=== PATIENT | male | born 1965 | race Caucasian/White ===

== ENCOUNTER 2017-02-25 17:44 | Inpatient (IN) | payer OTHER ==
[~2017-02-25] VITALS: Ht 167.6 cm; Wt 93.5 kg
--- NOTE | 2017-02-25 17:47 | Emergency Room Report ---
History of Present Illness Time Seen by MD Castro Presenting Problem in Triage Pt arrived:Walked Presenting Problem:PT HAS BEEN EXPERIENCING "FLUTTERY" DISCOMFORT IN CHEST WITHOUT RADIATION ALL DAY. 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 ARRIVES AT ED WITH "OCCASIONAL" DISTRESS COMPLAINTS. NO SOB. NO PREVIOUS INJURY. 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 N Clinical Suspician of Infection? N Mental Status: 1 - Regular (Normal Baseline) Sepsis Risk:Low Sepsis Risk Have you (or family members/close friends) recently traveled outside the [place]? N If Yes, where/when: Have you had exposure to infectious disease within the past month? TB? Other? Specify: Comment The patient complains of palpitations and chest tightness. He started having what sound like extrasystoles at about 10 AM, when he gets them it makes him cough. He started getting some chest tightness off and on that started about 1 PM and LEFT after he got here in the emergency room and he is currently completely symptom free. He said he has had some minimal chest tightness and palpitations off and on in the past, but not like today. No known history of heart disease. Former smoker. At one time he was treated for hyperlipidemia, but not now. He does not have diabetes or hypertension to his knowledge. He denies family history of heart disease. A stress test done years ago. No other cardiac workup ALLERGIES Uncoded Allergies: PCN (Mild, 02/25/17) History Medical History Surgical Hx Previous Surgery?N Review of Systems All Other Systems Reviewed and Negative Constitutional denies diaphoresis, denies fever Respiratory cough, denies shortness of breath Cardiovascular chest pain, palpitations Gastrointestinal denies nausea, denies vomiting Physical Exam Vital Signs Vital Signs Date Time Temp Pulse Resp B/P Pulse O2 O2 Flow FiO2 Ox Delivery Rate 02/25 1935 98.2 79 20 144/77 100 02/26 1928 79 20 144/77 100 02/25 1834 98.2 64 20 151/81 100 02/26 1748 98.3 75 18 152/75 100 General Appearance normal appearance, WD/WN Eye Exam - bilateral eye normal exam, bilateral eye PERRL, bilateral eye EOMI Ear, Nose, Throat hearing grossly normal, normal ENT inspection Neck normal inspection, non-tender, supple, full range of motion Respiratory Status Yes: trachea midline, chest symmetrical. No: respiratory distress. Lung Sounds bilateral: normal breath sounds, lungs clear. 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 No Results/Orders Laboratory Tests 02/25/17 1745: Sodium 139, Potassium 3.7, Chloride 103, Carbon Dioxide 27, BUN 13, Creatinine 1.0, Estimated Creat Clear 111, Estimated GFR (MDRD) 78, Glucose 97, Calcium 8.8 , Total Bilirubin 0.6, AST 21, ALT 41, Alkaline Phosphatase 72, Creatine Kinase 172, CK-MB (CK-2) Rel Index 0.5, CK and CKMB Interp 0.8, Troponin I 0.19 H, Total Protein 8.0, Albumin 4.3, Globulin 3.7 H, Albumin/Globulin Ratio 1.2, WBC 6.5, RBC 4.90, Hgb 15.2, Hct 41.8 L, MCV 85.2, RDW 12.4, Plt Count 251, MPV 8.4 , Gran % 50.8, Gran # 3.3, Lymphocytes % 37.3, Monocytes % 9.1, Eosinophils % 2.5, Basophils % 0.4, Lymphocytes # 2.4, Monocytes # 0.6, Eosinophils # 0.2, Basophils # 0.0, PUBS MCHC 36.4 H, MCH 31.0 Current Medication Orders Sig/Carlos Start time Last Medication Dose Route Stop Time Status Admin Atorvastatin Calcium 20 MG DAILY 02/26 09 UNV PO Metoprolol Tartrate 25 MG BID 02/25 2100 UNV PO Nicotine 21 MG DAILYP PRN 02/25 1945 UNV TD Sodium Chloride 10 ML PRN PRN 09/01 1945 UNV IV Metoprolol Tartrate 0 .STK-MED ONE 02/25 1926 DC .ROUTE Ticagrelor 0 .STK-MED ONE 02/25 190 DC PO Atorvastatin Calcium 20 MG ONCE ONE 02/25 1900 DC PO 02/25 190 Metoprolol Tartrate 25 MG ONCE ONE 02/25 1900 DC 02/25 PO 02/25 190 1928 Ticagrelor 180 MG ONCE ONE 02/25 1900 DC 02/25 PO 02/25 190 190 Aspirin 324 MG ONCE ONE 02/25 1800 DC 02/25 PO 02/25 1801 1753 Sodium Chloride 10 ML PRN PRN 02/25 1800 AC IV 02/26 1746 Aspirin 0 .STK-MED ONE 02/25 175 DC .ROUTE Orders Procedure Date/time Status [id number] FAT/LO CHO/DARIUS 02/26 B Active TROPONIN I 02/26 0400 Active TROPONIN I 02/26 0100 Active TROPONIN I 02/25 2200 Active Decision to admit 02/25 190 Active PRODUCTION ZONE LEADER 02/25 1855 Active ELECTROCARDIOGRAM REQUEST 02/25 1747 Active CHEST-PORTABLE 02/25 174 Active IV SALINE LOCK 02/25 1747 Active CBC WITH AUTO DIFF 02/25 1747 Complete CARDIAC ENZYMES 02/25 1747 Complete CHEM 12 PROFILE 02/25 1747 Complete ADMIT PATIENT 02/25 UNK Active PULSE OXIMETRY REQUEST 02/25 UNK Active OXYGEN REQUEST 02/25 UNK Active VITAL SIGNS 02/25 UNK Active 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 Inverted in V4, V5, V6, 1, aVL, and II. No prior EKGs available for comparison EKG #2 interpreted by Pavan Landrum MD: Rhythm: sinus Rate: 64 Ozone: normal Ectopy: none Conduction: normal ST Segment Changes: none T Wave Changes: Biphasic in III, AVF, V2 and V3. Inverted in V4, V5, V6, 1, aVL, and II. Q Waves: none No significant change from first electrocardiogram. XRAY/CT/US XRAY/CT/US XRAY chest Comment Chest x-ray interpreted by Pavan Landrum M.D. No infiltrate, pneumothorax, pleural effusion, or wide mediastinum. SHALONDA Score for N-Stemi/Angina SHALONDA N-STEMI SCORE SHALONDA N-STEMI SCORE Response Value Age of patient Less than 65 yrs 0 Number of risk factors for CAD Presence of less than 3 0 Prior coronary artery stenosis (seen in angiography) Less than 50% 0 ST-Segment deviation on ECG (>1 min) Absent 0 Prior aspirin intake No ASA in the last 7 days 0 Severe anginal chest pain No or 1 episode in 24h 0 Elevated cardiac markers(CK-MB or troponin) Present 1 Total 1 Progress - 6:50 PM: Case discussed with Dr. Watts, cardiology. He requested the patient be admitted and he will do a cardiac cath in the morning. He requests Brilinta 180 mg, Lipitor 20 mg and Lopressor 25 mg twice a day orally. 7:05 PM: I have discussed the case with Dr. Poe for Dr. Haji who agrees to admit the patient to the hospital. We discussed the patient's clinical information, including history, exam, laboratory and radiology results and ED course. Per hospital procedure, I will write temporary bridge inpatient orders on the patient. Specific orders requested by the admitting physician: Per Dr. Watts Departure Departure Disposition Still a Patient Clinical Impression Primary Impression: Non-ST elevation myocardial infarction (NSTEMI) Condition STABLE Referrals Adithya [facility],Daniel Vazquez (Family) ED Critical Care Critical Care No at 2016
[2017-02-25 17:48] VITALS: BP 152/75
[2017-02-25 18:04] LABS: HEMOGLOBIN 15.2 g/dL (14.1-18.0); LYMPH # 2.4 K/mm3 (0.7-4.5); LYMPH % 37.3 % (10-50)
[2017-02-25 20:17] VITALS: BP 144/77
[2017-02-25 22:11] VITALS: BP 161/83
[2017-02-25 23:46] VITALS: BP 121/51
[2017-02-26] VITALS (14 sets, daily range): BP systolic 100–143; BP diastolic 52–75
--- NOTE | 2017-02-26 07:23 | HISTORY AND PHYSICAL REPORT ---
Demographics: Admit date: 02/25/17 Chief complaint: chest pain PRIMARY DIAGNOSIS: NON-STEMI Allergies: Uncoded Allergies: PCN (Mild, 02/25/17) History of present illness: History of present illness: this wm starting having chest tightness and heart fluttering and had some sob and presented to the ed and was found to have abn ekg and card enz and was discussed with dr ballard and admitted with nonstemi - Past medical history: Family HX Family Hx Insignificant No Diabetes No CAD No Hypertension No Hyperlipidemia No Cancer Yes TB No Immunization HX Ped.Immunizations UTD Yes DT/Tetanus > 10 Years Ago Pneumonia Never Had TB Test in last year Yes Result Negative General CAD? Yes Angina: No OH: No Hypertension? No Hyperlipidemia? No CHF? No COPD? No Asthma? No Hernia? No CVA? No Seizures? No Diabetes? No UTI? No Stones? No GB Disease: No Nephritic Syndrome? No Asplenia? No Hepatitis? No Sickle Cell Disease? No Cataracts? No Glaucoma? No MRSA? No HIV? No TB? No Cancer? No More? Yes Additional hx: MVP Past Surgical HX Previous Surgery?N Social Hx: Smoking HX Tobacco Yes Type Cigarettes Packs/day < 1 PACK Are you/the child exposed to second-hand smoke: No Alcohol Alcohol: No Hx of Drug Use Drug Use? No Patien't marital status is Patient's support system is excellent Review of systems: Constitutional No: fever. Eyes No: drainage. Ears, Nose, Mouth, Throat No ear pain, No epistaxis, No throat pain Respiratory No: cough, shortness of breath, wheezing. Cardiovascular see HPI, chest pain, No palpitations, No syncope Gastrointestinal/Abdominal No diarrhea, No poor appetite, No poor fluid intake, No vomiting Genitourinary No: dysuria, frequency, hesitancy, hematuria. Musculoskeletal No: back pain, joint pain, joint swelling, neck pain. Skin No: rash. Neurological No: headache, seizure disorder. Psychiatric No: no symptoms reported, depressed. Exam: Lab data for last 24 hours: Laboratory Tests 02/26/17 0400: Troponin I 0.19 H 02/26/17 0400: Triglycerides 103, Cholesterol 189, LDL Cholesterol 128.4, VLDL Cholesterol 20.6 , HDL Cholesterol 40.0 02/26/17 0100: Troponin I 0.18 H 02/25/17 2200: Troponin I 0.18 H 02/25/17 1745: Sodium 139, Potassium 3.7, Chloride 103, Carbon Dioxide 27, BUN 13, Creatinine 1.0, Estimated Creat Clear 111, Estimated GFR (MDRD) 78, Glucose 97, Calcium 8.8 , Total Bilirubin 0.6, AST 21, ALT 41, Alkaline Phosphatase 72, Creatine Kinase 172, CK-MB (CK-2) Rel Index 0.5, CK and CKMB Interp 0.8, Troponin I 0.19 H, Total Protein 8.0, Albumin 4.3, Globulin 3.7 H, Albumin/Globulin Ratio 1.2, WBC 6.5, RBC 4.90, Hgb 15.2, Hct 41.8 L, MCV 85.2, RDW 12.4, Plt Count 251, MPV 8.4 , Gran % 50.8, Gran # 3.3, Lymphocytes % 37.3, Monocytes % 9.1, Eosinophils % 2.5, Basophils % 0.4, Lymphocytes # 2.4, Monocytes # 0.6, Eosinophils # 0.2, Basophils # 0.0, PUBS MCHC 36.4 H, MCH 31.0 Admission vital signs: 1ST Vital Signs Result Date Time Pulse Ox 100 02/26 1748 B/P 152/75 02/26 1748 Temp 98.3 02/26 1748 Pulse 75 02/25 1748 Resp 18 02/25 1748 O2 Delivery ROOM AIR 02/25 2017 O2 Flow Rate 2 02/25 2217 Exam General appearance: alert, active Eyes: anicteric, PERRLA ENT: dry mucous membranes Neck: no carotid bruit, no JVD Cardiovascular: regular rate & rhythm, murmur Respiratory: clear to auscultation, no respiratory distress ABD: soft Genitourinary: normal voiding & quantity Extremities: moves all Musculoskeletal: equal muscle strength Skin: intact Neuro: alert, division manager II-XII nml as tested Additional information: pt with abn ekg and has abn /elevated troponin - and pain was consistent with angina- will prob need cath Plan: Problem List 1. Non-ST elevation myocardial infarction (NSTEMI) Plan: will await card consult at 0723
--- NOTE | 2017-02-26 10:20 | RADIOLOGY REPORT PS360 ---
CARDIAC CATHETERIZATION DATE OF CATHETERIZATION:02/26/2017 8:53 AM PROCEDURES: 1. Left heart catheterization 2. Left ventriculogram 3. Selective coronary angiogram INDICATION FOR TEST: 1. Acute non-ST elevation myocardial infarction Informed consent was obtained prior to the procedure. COMPLICATIONS: None ESTIMATED BLOOD LOSS: Less than 10 ml. TECHNIQUE: One percent lidocaine used to anesthetize the right anterior aspect of the wrist. The right radial artery was accessed via the Seldinger technique. A 6 Serbian sheath was placed in the right radial artery. 2.5 mg of verapamil, 800 mcg of nitroglycerin and 5000 U Heparin were given through the arterial sheath. The Marian catheter was also used to perform left heart catheterization and left ventriculography. At the end of the procedure the patient was transferred to the post-op holding area in stable condition for arterial sheath removal. ANGIOGRAPHIC RESULTS: 1. The left main artery normal 2. The left anterior descending artery normal 3. The circumflex artery dominant normal 4. The right coronary artery small vestigial normal 5. The NDIAYE ventriculogram reveals hyperdynamic with mid anterior apical cavitary obliteration with an estimated ejection fraction of 85% 6. The left ventricular end-diastolic pressure 20 mmHg IMPRESSION: 1. Normal coronary arteries. 2. Cavitary obliteration in the mid anterior apical segment consistent with apical hypertrophic obstructive cardiomyopathy 3. Mildly elevated LVEDP PLAN: 1. Start high-dose beta blockers and verapamil in order to decrease inotropic state 2. It is possible the patient has hypertensive heart disease but I am more concerned and believe that patient doesn't the have at least apical HOCM 3. I would like to keep patient and the hospital this afternoon and tonight and start patient on beta blockers along with 240 mg of verapamil. We should avoid afterload reducing medicines such as alivia inhibitors or any other vasodilator such as dihydropyridine calcium channel blockers, ARB's, and/or alpha blockers. 4. An echocardiogram be obtained on Tuesday to better evaluate the degree of hypertrophic obstruction 5. Also consider transesophageal echocardiogram depending on the quality of the TTE 6. Daily baby aspirin is reasonable
--- NOTE | 2017-02-26 11:14 | PHARMACY CLINIC NOTE ---
Patient Demographics Patient Demographics Admission date: 02/25/17 Date: 02/26/17 Time: 1114 Allergies Coded Allergies: Penicillins (Mild, 02/26/17) HEIGHT- FT: 5 IN: 6.00 K.526 VTE General Information Labs: Laboratory Tests 02/25 1745 Hematology Hgb (14.1 - 18.0 g/dL) 15.2 Hct (42.0 - 52.0 %) 41.8 L Plt Count (142 - 424 K/mm3) 251 Disclaimer The following section includes nursing documentation that has been pulled in for pharmacy review. Patient's VTE score: 3 Patient's VTE Risk: LOW RISK Clinical trial participant? No VTE prophylaxis F 0371 VTE prophylaxis ordered? Yes Type of prophylaxis/treatment: BENJI at 1114
--- NOTE | 2017-02-26 14:45 | RADIOLOGY REPORT PS360 ---
CHEST-PORTABLE Ordering physician: Pavan Landrum MD Age: 51 years Male INDICATION: chest symptomsCP impression PROCEDURE: CHEST-PORTABLE FINDINGS: No prior Lungs well expanded and clear with nothing definitely acute. No pneumothorax. No pleural effusion. Heart upper normal size a left ventricular configuration.. Normal pulmonary vascularity. Hilar and mediastinal structures appear satisfactory. Chest wall. Unremarkable. IMPRESSION ----- No active disease. Lungs clear. Borderline cardiomegaly with left ventricular configuration.
[2017-02-26] MEDS ORDERED: ASPIR 8181 MG PO (17:06)
[2017-02-26] MEDS ORDERED: LOPRESSOR 25MG.25 MG PO (17:06)
--- NOTE | 2017-02-26 17:11 | DISCHARGE SUMMARY STANDARD ---
Demographics Admit date: 02/25/17 Discharge date: 02/26/17 History of present illness History of present illness this wm starting having chest tightness and heart fluttering and had some sob and presented to the ed and was found to have abn ekg and card enz and was discussed with dr ballard and admitted with nonstemi - Hospital Course Hospital Course: cardiac work up- elio consult cardiac cath:per note-PLAN: 1. Start high-dose beta blockers and verapamil in order to decrease inotropic state 2. It is possible the patient has hypertensive heart disease but I am more concerned and believe that patient doesn't the have at least apical HOCM 3. I would like to keep patient and the hospital this afternoon and tonight and start patient on beta blockers along with 240 mg of verapamil. We should avoid afterload reducing medicines such as alivia inhibitors or any other vasodilator such as dihydropyridine calcium channel blockers, ARB's, and/or alpha blockers. 4. An echocardiogram be obtained on Tuesday to better evaluate the degree of hypertrophic obstruction 5. Also consider transesophageal echocardiogram depending on the quality of the TTE 6. Daily baby aspirin is reasonable chest x ray results:IMPRESSION ----- No active disease. Lungs clear. Borderline cardiomegaly with left ventricular configuration. Follow up at 9 am with elio Discharge diagnoses Problem List 1. Non-ST elevation myocardial infarction (NSTEMI) Medications Medications: Discharge meds are as noted. Follow up Follow up in office in: 3 DAYS with: Emmanuel Ballard MD Comment: brianne bear at [phone]
== END 2017-02-26 18:25 | disposition home or self-care (01) | DRG 281 ==
LOC: ER 17:44 → 2ND 19:27
PROVIDERS: Emergency Medicine; Internal Medicine
PROC: 4A023N7 Measurement of Cardiac Sampling and Pressure, Left Heart, Percutaneous Approach (ICD-10-PCS; principal; 2017-02-26 08:00)
PROC: B2151ZZ Fluoroscopy of Left Heart using Low Osmolar Contrast (ICD-10-PCS; principal; 2017-02-26 08:00)
PROC: B2111ZZ Fluoroscopy of Multiple Coronary Arteries using Low Osmolar Contrast (ICD-10-PCS; principal; 2017-02-26 08:00)
DX: I21.4 Non-ST elevation (NSTEMI) myocardial infarction (principal); I42.1 Obstructive hypertrophic cardiomyopathy
CPT/HCPCS: C1769; J1644; Q9967

== ENCOUNTER → 2017-03-01 | Outpatient (CLI) | payer OTHER ==
[~2017-03-01] MED LIST: ASPIR 8181 MG PO; LOPRESSOR 25MG.25 MG PO
--- NOTE | 2017-03-01 22:38 | RADIOLOGY REPORT PS360 ---
PROCEDURE: 2-D M-mode and color Doppler study INDICATIONS FOR THE TEST: Chest pain COPD Heart Murmur+ Tobacco Smoking Palpitations Fatigue Syncope Edema Hypertension Diabetes Mellitus Rheumatic Fever SOB JOHANSEN Obesity Hyperlipidemia Family History HD Additional History NSTEMI, MVP? PATIENT INFORMATION HEIGHT: 66 WEIGHT:205 GENDER: Male B/P:152/75 2-D/M-MODE INTERPRETATION: 2-D MEASUREMENTS OBSERVED VALUES IN CMS Right Ventricular Dimension (RVDd) 1.8 Interventricular Septum (Thickness)(IVsd) 1.2 Left Ventricular Internal Dimensions(LVIDd) 4.4 Left Ventricular Posterior Wall (Thickness)(LVPWd) 1.1 Aortic Root 2.9 Aortic Cusp Separation 1.8 Left Atrial Dimensions (LAD) 4.6 2D 1. Left atrium is mildly enlarged, left ventricle is normal size, there is mild concentric left ventricular hypertrophy present, there appears to be complete cavity obliteration mid to distal septum and apical region raising the concern is for presence of apical hypertrophic cardiomyopathy. Visually estimated ejection fraction is over 65%. 2. The right atrium and right ventricle are normal size and contractility. 3. The aortic valve is minimally thickened and fibrosed. 4. The mitral and tricuspid valve leaflets are minimally thickened. 5. The pulmonic valve is poorly visualized. 6. No significant pericardial effusion noted. DOPPLER INTERROGATION: Doppler interrogation of the aortic mitral and tricuspid valvular presence of mild mitral and tricuspid regurgitation, tricuspid and jet velocity insufficient for calculation of the right ventricular systolic pressure, grade 1 diastolic dysfunction seen with tissue Doppler evidence of raised left atrial pressure. CONCLUSION: 1. Technically difficult study. 2. Normal left ventricular size, visually estimated ejection fraction over 65%, there appears to be asymmetric hypertrophy of the apex and mid to distal septum with complete cavity obliteration during systole raising the presence of apical hypertrophy cardiomyopathy. Grade 1 diastolic dysfunction seen with tissue Doppler evidence of raised left atrial pressure. 3. Mild mitral and tricuspid regurgitation. 4. No significant pericardial effusion noted. 5. Repeat study with Definity contrast is recommended.
== END ==
LOC: RT 12:46
DX: I42.9 Cardiomyopathy, unspecified (principal); I10 Essential (primary) hypertension; G47.33 Obstructive sleep apnea (adult) (pediatric)

== ENCOUNTER → 2017-03-02 | Outpatient (CLI) | payer OTHER | LOC: RT 18:04 | DX: I42.9 Cardiomyopathy, unspecified (principal); I10 Essential (primary) hypertension; G47.33 Obstructive sleep apnea (adult) (pediatric) ==

== ENCOUNTER → 2017-03-21 | Outpatient (CLI) | payer OTHER ==
--- NOTE | 2017-03-21 21:09 | RADIOLOGY REPORT PS360 ---
PROCEDURE: Limited study with definity contrast is performed INDICATIONS FOR THE TEST: Chest pain COPD Heart Murmur Tobacco Smoking Palpitations Fatigue Syncope Edema Hypertension Diabetes Mellitus Rheumatic Fever SOB JOHANSEN Obesity Hyperlipidemia Family History HD Additional History REPEAT WITH DEFINITY LIMITED EXAM PATIENT INFORMATION HEIGHT: 66 WEIGHT:205 GENDER: Male B/P:152/75 2-D/M-MODE INTERPRETATION: 2-D MEASUREMENTS OBSERVED VALUES IN CMS Right Ventricular Dimension (RVDd) Interventricular Septum (Thickness)(IVsd) Left Ventricular Internal Dimensions(LVIDd) Left Ventricular Posterior Wall (Thickness)(LVPWd) Aortic Root Aortic Cusp Separation Left Atrial Dimensions (LAD) 2D 1. The left ventricle is normal size, there is preserved left ventricular systolic function, visually estimated ejection fraction of 55%, there is marked hypertrophy seen of the distal septum anteroapical and apical wall this is likely consistent with apical hypertrophic cardiomyopathy. 2. No significant pericardial effusion noted DOPPLER INTERROGATION: Normal Doppler performed CONCLUSION: 1. The left ventricle is normal size, visually estimated ejection fraction of 55%, there is mild hypertrophy seen of the distal septum, anteroapical, and apical wall consistent with apical hypertrophic cardiomyopathy. 2. No significant pericardial effusion noted.
== END ==
LOC: RT 08:00
DX: I47.2 Ventricular tachycardia (principal); I42.1 Obstructive hypertrophic cardiomyopathy; I10 Essential (primary) hypertension; I11.9 Hypertensive heart disease without heart failure; R68.89 Other general symptoms and signs; R94.31 Abnormal electrocardiogram [ECG] [EKG]

== ENCOUNTER 2017-05-31 10:04 | Day surgery (SDC) | payer OTHER ==
[~2017-05-31] VITALS: Ht 167.6 cm; Wt 92.5 kg
--- NOTE | 2017-05-31 11:08 | Operative Note ---
Endoscopy Report Date: 05/31/17 Preoperative diagnosis: History of polyps, family history colon cancer Procedure Type of procedure: Total colonoscopy to terminal ileum with biopsies and polypectomy Indications: Patient is a 51-year-old white male with a family history of colon cancer in his grandfather. I had previously performed a couple colonoscopies on him. Last colonoscopy was in 2012 and he had hyperplastic polyps. I had recommended 3-5 year follow-up colonoscopy. Patient had previously been under the care of Dr. Hudson and is now seeing Dr. Haji. Of note, patient had a heart attack apparently on February 25. However he had no coronary lesions. He has had some medication changes and was placed on metoprolol. This leg to some constipation. He had some rectal bleeding and burning. Consent was obtained and patient was taken to the endoscopy procedure room. Adequate intravenous sedation was achieved with anesthesia titration of propofol. Digital examination revealed posterior anal sentinel skin tag but no definite fissure was palpated. Variable stiffness Olympus colonoscope was inserted via the anus and advanced to the cecum. Colonic preparation was good. It was advanced a short distance into the terminal ileum. There was some mucosal irregularity in the terminal ileum and cold biopsies were obtained. As the colonoscope was withdrawn through the colon small polyp was encountered in the descending colon and this was removed in a piecemeal fashion using cold biopsy forceps. In the sigmoid colon there is a small polyp removed in a piecemeal fashion using cold biopsy forceps. Retroflexion within the rectum revealed minimal internal hemorrhoids. Colonoscope was withdrawn. Findings 1. Polyp 2. mucosal irregularity of terminal ileum Follow-Up Follow-Up: Follow-up on the histopathology. Likely repeat colonoscopy 3-5 years. at [id number]
[2017-05-31 15:41] VITALS: BP 102/55
== END 2017-05-31 12:00 | disposition home or self-care (01) ==
LOC: SDC 10:04
PROVIDERS: Surgery
PROC: 0DBN8ZX Excision of Sigmoid Colon, Via Natural or Artificial Opening Endoscopic, Diagnostic (ICD-10-PCS; 2017-05-31)
PROC: 0DBM8ZX Excision of Descending Colon, Via Natural or Artificial Opening Endoscopic, Diagnostic (ICD-10-PCS; principal; 2017-05-31 10:30)
DX: Z12.11 Encounter for screening for malignant neoplasm of colon (principal); Z86.010 Personal history of colon polyps; Z80.0 Family history of malignant neoplasm of digestive organs; K64.8 Other hemorrhoids; K63.5 Polyp of colon